=== PATIENT | male | born 1990 | race Caucasian/White ===

== ENCOUNTER 2017-09-13 15:07 | Emergency (ER) | payer OTHER, MEDICAID ==
[2017-09-13] MEDS: ONDANSETRON (ODT) 4 MG TAB ODT (16:56)
[2017-09-13] MEDS: HYDROCODONE/APAP (5/325) TAB PO (16:56)
[2017-09-13] MEDS ORDERED: DIVALPROEX (EC) 250 MG TAB PO (17:00)
[2017-09-13] MEDS: DIVALPROEX (EC) 250 MG TAB PO (17:10)
[2017-09-13] MEDS ORDERED: IBUPROFEN 600 MG TAB PO (20:30)
[2017-09-13] MEDS: IBUPROFEN 800 MG TAB PO (20:31)
== END 2017-09-13 23:46 | disposition home or self-care (01) ==
LOC: FTE 15:07
DX: S76.012A Strain of muscle, fascia and tendon of left hip, initial encounter (principal); S60.811A Abrasion of right wrist, initial encounter; S50.812A Abrasion of left forearm, initial encounter; S00.31XA Abrasion of nose, initial encounter; R51 Headache; R07.9 Chest pain, unspecified; V49.40XA Driver injured in collision with unspecified motor vehicles in traffic accident, initial encounter
CPT/HCPCS: 29125; 70450; 71045; 72040; 73090; 73110-RT; 73510; 93005; 99285-25